=== PATIENT | female | born 1970 | race Caucasian/White ===

== ENCOUNTER 2018-03-17 07:47 | Emergency (ER) | payer OTHER ==
[~2018-03-17] VITALS: Ht 182.9 cm; Wt 77.1 kg
--- NOTE | ~2018-03-17 | EKG ---
[address] [address] ELECTROCARDIOGRAM REPORT Name: YUE WOO Room #: DEP [facility]#: [id number] Admission: 03/17/18 Attend Phys: Discharge: 03/17/18 Date of : 72 Report #: [id number] THIS REPORT FOR: //name// [facility] ED Test Date: 2018-03-17 Test Time: 08:12:50 Pat Name: YUE WOO Department: Room: Gender: F [employer]: kem : 1970 Requested By: Diamond Temple Order Number: [id number] MD: Momo Kingsley Measurements Intervals Malcolm Rate: 114 P: 65 CA: 151 QRS: 10 QRSD: 89 T: 45 QT: 369 QTc: 509 Interpretive Statements Sinus tachycardia Right ventricular conduction delay Borderline prolonged QT interval Compared to ECG 12/22/2012 22:10:13 No significant changes Electronically Signed On 03-18-2018 7:39:35 [employer] by Momo Kingsley [email or web address] <ELECTRONICALLY SIGNED> By: Momo Kingsley MD, [facility] 03/18/18 0739 1 1 Momo Kingsley MD, [facility] /EPI
[~2018-03-17 07:47] MED LIST: ADDERALL 10 MG10 MG PO; ANDRODERM1 EAC1; CLONAZEPAM 1 MG1 M1 PO; LAMICTAL XR100 MG PO; LEXAPRO20 MG PO; XANAX XR1 MG PO
[2018-03-17 08:37] LABS: ABSOLUTE NEUTROPHILS 7.5 thou/uL (1.4-8.2); BASOPHILS 0.6 % (0.0-2.0); EOSINOPHILS 0.1 % (0.0-3.0); HEMATOCRIT 41.7 % (37.0-47.0); HEMOGLOBIN 14.5 gm/dL (12.0-15.0); LYMPHOCYTES 8.5 % (24.0-44.0); MCH 31.2 pg (26.0-34.0); MCHC 34.8 g/dL (28.0-37.0); MCV 89.8 fL (80.0-100.0); PLATELET COUNT 300 thou/uL (150-400); POLYS 85.8 % (36.0-66.0); RBC 4.65 mil/uL (4.20-5.00); RDW 13.5 % (10.5-14.5); WBC 8.7 thou/uL (4.0-11.0)
[2018-03-17 08:44] LABS: AMP/METHAMP POSITIVE (Negative); BARBITURATES Negative (Negative); BENZODIAZEPINES Negative (Negative); COCAINE Negative (Negative); METHADONE Negative (Negative); OPIATES Negative (Negative); PCP Negative (Negative)
[2018-03-17 08:46] LABS: ANION GAP 11 mmol/L (7-16); BUN 11 mg/dL (7-18); CALCIUM 9.9 mg/dL (8.5-10.1); CHLORIDE 104 mmol/L (98-107); CO2 29 mmol/L (21-32); CREATININE 0.8 mg/dL (0.6-1.0); GLUCOSE 113 mg/dL (74-106); POTASSIUM 3.4 mmol/L (3.5-5.1); SODIUM 144 mmol/L (136-145)
[2018-03-17 08:52] LABS: ALBUMIN 4.1 g/dL (3.4-5.0); LIPASE 65 U/L (73-393); SALICYLATE < 2.8 mg/dL (2.8-20.0); SGOT 19 U/L (15-37); SGPT 27 U/L (30-65); TOTAL BILIRUBIN 0.4 mg/dL (<0.1-1.0); TOTAL PROTEIN 7.7 g/dL (6.4-8.2)
[2018-03-17 13:13] VITALS: BP 114/78
== END 2018-03-17 13:14 | disposition home or self-care (01) ==
LOC: ER 07:47
PROVIDERS: Student in an Organized Health Care Education/Training Program
DX: F15.129 Other stimulant abuse with intoxication, unspecified (principal); F10.129 Alcohol abuse with intoxication, unspecified; F41.9 Anxiety disorder, unspecified; F17.210 Nicotine dependence, cigarettes, uncomplicated; Z79.899 Other long term (current) drug therapy